=== PATIENT | female | born 1975 | race Caucasian/White ===

== ENCOUNTER 2017-07-20 21:44 | Emergency (ER) | payer BC, MEDICAID ==
[~2017-07-20] VITALS: Ht 160 cm; Wt 61.8 kg
[~2017-07-20 21:44] MED LIST: ALBU8.5H3 IH
[2017-07-20 23:14] VITALS: BP 104/50
== END 2017-07-20 23:16 | disposition home or self-care (01) ==
LOC: EMS 21:45
DX: J02.9 Acute pharyngitis, unspecified (principal); M79.675 Pain in left toe(s); J45.909 Unspecified asthma, uncomplicated; Z79.899 Other long term (current) drug therapy
CPT/HCPCS: 99284